=== PATIENT | female | born 1955 | race Caucasian/White ===

== ENCOUNTER → 2024-02-15 10:46 | Outpatient (REF) | payer OTHER, SELFPAY | LOC: HWWDC 10:46 | PROVIDERS: ATTENDING PHYSICIAN Internal Medicine | DX: Z12.31 Encounter for screening mammogram for malignant neoplasm of breast (principal) | CPT/HCPCS: 77063; 77067 ==

== ENCOUNTER → 2024-07-06 06:22 | Day surgery (SDC) | payer OTHER, SELFPAY ==
[2024-07-06 07:32] LABS: Glucose - Point of Care 220 mg/dl (70-99)
== END ==
LOC: GI 06:22
PROVIDERS: ATTENDING PHYSICIAN Internal Medicine Gastroenterology
DX: Z12.11 Encounter for screening for malignant neoplasm of colon (principal); D12.0 Benign neoplasm of cecum; D12.2 Benign neoplasm of ascending colon; K57.30 Diverticulosis of large intestine without perforation or abscess without bleeding; K64.8 Other hemorrhoids; Z86.0100 Personal history of colon polyps, unspecified
CPT/HCPCS: 45380; 88305; 82962

== ENCOUNTER → 2024-07-24 13:19 | Outpatient (REF) | payer OTHER, SELFPAY | LOC: MRI 13:19 | PROVIDERS: ATTENDING PHYSICIAN Internal Medicine | DX: S46.911S Strain of unspecified muscle, fascia and tendon at shoulder and upper arm level, right arm, sequela (principal); M25.511 Pain in right shoulder | CPT/HCPCS: 73221 ==

== ENCOUNTER → 2025-01-24 09:09 | Outpatient (REF) | payer OTHER, SELFPAY | LOC: HWRAD 09:09 | PROVIDERS: ATTENDING PHYSICIAN Internal Medicine Gastroenterology; PRIMARYCARE PHYSICIAN Internal Medicine | DX: K76.0 Fatty (change of) liver, not elsewhere classified (principal) | CPT/HCPCS: 76700 ==

== ENCOUNTER → 2025-02-19 08:51 | Outpatient (REF) | payer OTHER, SELFPAY | LOC: HWWDC 08:51 | PROVIDERS: ATTENDING PHYSICIAN Internal Medicine | DX: Z12.31 Encounter for screening mammogram for malignant neoplasm of breast (principal) | CPT/HCPCS: 77063; 77067 ==

== ENCOUNTER 2025-03-02 10:36 | Emergency (ER) | payer OTHER, SELFPAY ==
[2025-03-02 10:36] VITALS: BMI 40.9
[2025-03-02 11:01] VITALS: BP 170/126
--- NOTE | 2025-03-02 11:05 | ED.GENMED ---
Addendum entered and electronically signed by Chance De Los Santos PA-C 03/05/25 06:11:
Urine culture shows greater than 100,000 colony-forming units of Klebsiella. Sensitive to Augmentin which the patient is on. No indication for any intervention
Original Note:
History of Present Illness
General
Chief Complaint: Abdominal Pain
Time Seen by Provider: 03/02/25 11:00
History of Present Illness
History of Present Illness:
TIME OF INITIAL EVALUATION
- 11:10 AM
REVIEW OF OLD RECORDS
- The patient has a history of diverticulitis and IBS, CKD, ovarian cancer. Of note she was admitted here with hypomagnesemia in 2021.
Note:
CHIEF COMPLAINT(S)
Abdominal pain and nausea.
HISTORY OF PRESENT ILLNESS
The patient is a 69-year-old female with a history of diabetes mellitus, presenting with lower abdominal pain primarily localized to the left lower quadrant, beginning approximately three days ago. The patient reports the pain exacerbates with
palpation on the right side but confirms it is most prominent where direct pressure is applied. She also describes accompanying nausea but denies vomiting. She reports experiencing fevers up to approximately 100.0�F. The pain began about five days
after her last office visit for a different issue. The patient has a pacemaker, which she reports has migrated towards her armpit. She is aware of the associated risks, such as infection. The patient also has a history of chronic kidney disease and
is advised against using anti-inflammatory medications. She generally manages pain with acetaminophen but is uncertain about taking stronger medications.
ADDITIONAL HISTORY OBTAINED FROM SOURCES OTHER THAN THE PATIENT
According to the patient, no recent medical evaluation has been performed for her current presenting symptoms until now.
CHRONIC MEDICAL CONDITIONS SIGNIFICANTLY AFFECTING CARE
Chronic conditions affecting care: diabetes mellitus, pacemaker in situ, chronic kidney disease.
PAST MEDICAL HISTORY
Diabetes mellitus, chronic kidney disease.
PAST SURGICAL HISTORY
Pacemaker placement.
MEDICATIONS
Acetaminophen as needed.
REVIEW OF SYSTEMS
- Gastrointestinal: Nausea, abdominal pain primarily in the left lower quadrant.
- Constitutional: Fevers noted, approximately 100.0�F.
PHYSICAL EXAM
Nursing notes reviewed and vital signs reviewed.
- Cardiovascular: Pacemaker palpated, reported migration noted by the patient and felt during the physical exam near the left axilla.
- Abdominal: Tenderness primarily localized to the left lower quadrant. Mild tenderness to the right abdomen.
- General: Well appearing in no distress
- HEENT: Moist oral mucosa
- Cardiovascular: No murmurs, normal heart rate, regular rhythm, No chest wall tenderness
- Pulmonary: No respiratory distress, breath sounds are clear and equal
- Abdomen: Soft with no peritoneal signs, no tenderness
- Neurologic: Excellent strength all extremities, no coordination deficits
- Psychiatric: Appropriate mental status, normal insight and judgement
- Extremities: Nontender, no edema, moves all extremities equally
- Skin: No rash, no lesions
PLAN
Plan to perform a CT scan of the abdomen. Administer intravenous fluids and prescribe anti-nausea medication. Re-evaluate with blood work results and imaging findings.
DIFFERENTIAL DIAGNOSIS
The Differential Diagnosis includes, in no particular order and is not limited to:
- Diverticulitis
- Urinary tract infection
- Nephrolithiasis
- Gastroenteritis
- Appendicitis (unlikely given the location of pain)
- Constipation
- Abdominal aortic aneurysm
- Small bowel obstruction
- Mesenteric ischemia
- Biliary colic
RADIOLOGY
- CT imaging obtained and agree with radiologist interpretation that there is diverticulosis with no clear sign of diverticulitis
EKG
- Not indicated as pain is only primarily in the left lower quadrant
LABS
- Glucose 237, bicarb 20, white count is normal at 10.4, hemoglobin normal
UPDATE
- Patient appears fairly comfortable on reassessment at 1:50 PM
SUMMARY OF ENCOUNTER
The patient, a 69-year-old female with a history of diabetes mellitus and chronic kidney disease, presented with lower abdominal pain and accompanying nausea. Pain was localized to the left lower quadrant with tenderness upon palpation, potentially
indicating diverticulitis. Despite the normal white blood cell count, empirical antibiotic treatment was initiated due to localized tenderness.
DISPOSITION
Discharged with prescription for antibiotics.
ASSESSMENT
Lower abdominal pain potentially indicative of diverticulitis, managed with antibiotics due to clinical tenderness and history of similar symptoms.
EMERGENCY TREATMENTS ADMINISTERED
A dose of amoxicillin-clavulanate (Augmentin) was administered.
PLAN
Prescribe antibiotics and follow-up with dry cleaner presser. Monitor symptoms and effectiveness of treatment.
INDEPENDENT REVIEW OF LABS AND INTERPRETATION OF TESTS
My independent review of the CT scan is consistent with diverticulosis; however, there were no clear signs of diverticulitis according to the radiologist. Despite normal white blood cell count, antibiotics were deemed reasonable due to clinical
presentation.
MEDICATION RECONCILIATION
Amoxicillin-clavulanate prescribed and administered.
MEDICAL DECISION MAKING
1. Number & Complexity of Problems: Chronic conditions affecting care: diabetes mellitus, chronic kidney disease. Differential diagnoses considered include diverticulitis, urinary tract infection.
2. Risk: Consideration of admission/observation was made due to complexity/risk. However, outpatient management is appropriate based on reassuring work-up, stable vitals, symptom control, and follow-up reliability. Antibiotic was prescribed
considering potential for developing diverticulitis or urinary tract infection.
PATHOLOGIES TO CONSIDER
- Diverticulitis
- Urinary tract infection
- Nephrolithiasis
Past History
Past History
ED Past Medical History: Arrthythmia (Ventricular tachycardia, bradycardia with pauses (intermittent heart block)), HTN, Hypercholesterolemia, NIDDM and Other (Diverticulosis, irritable bowel syndrome, prolonged QT in the past)
ED Past Surgical History: Cardiac (Pacemaker) and Gynecological
Phy Exam
Physical Exam
Physical Exam:
See HPI
Course
Orders/Labs/Results
Orders:
Orders
03/02/25 11:05
0.9% Sodium Chloride 500 ml [Nss] 500 ml IV BOLUS
03/02/25 11:12
Complete Blood Count/With Diff Urgent
Comprehensive Metabolic Panel Urgent
Lipase Urgent
Magnesium Urgent
03/02/25 12:26
CT Abd/pelvis W Iv Cont Urgent
Comment:
Reason For Exam: LLQ pain h/o diverticulitis
03/02/25 13:47
Urinalysis Reflex To Culture Urgent
03/02/25 14:24
Amoxicillin 875 mg/Clav 125 mg [Augmentin 875 mg/125 mg] 1 tablet PO NOW STA
Abnormal Lab Results
03/02/25
11:12
Absolute Lymphs (auto) 4.7 H 10^3/uL
(1.2-3.4)
Absolute Monos (auto) 1.0 H 10^3/uL
(0.1-0.6)
Neutrophils % 40.8 L %
(42.2-75.2)
Monocytes % 9.4 H %
(1.7-9.3)
Chloride 109 H mmol/L
(98-107)
Carbon Dioxide 20 L mmol/L
(22-30)
Glucose 237 H mg/dl
(70-99)
AST 40 H U/L
(14-36)
ALT 36 H U/L
(0-35)
03/02/25 11:12
03/02/25 11:12
Vital Signs
Initial and Last Documented VS:
Initial Vital Signs
Temp Pulse Resp Pulse Ox
37.3 C 108 20 97
03/02/25 10:44 03/02/25 10:44 03/02/25 10:44 03/02/25 10:44
Last Documented Vital Signs
Temp Pulse Resp BP Pulse Ox
37.3 C 95 18 156/97 95
03/02/25 10:44 03/02/25 13:00 03/02/25 13:00 03/02/25 13:00 03/02/25 12:45
*Pulse Oximetry
SaO2: 97
Oxygen Mode of Delivery: Room air
Patient hypoxic: no
*Critical Care Note
Total Time (30-74mins, 75-104mins- exclusive of procedures): Not Applicable
ED Attending Note
-
Portions of this chart may have been created with voice recognition software.� Occasional wrong word or��sound alike� substitutions may have occurred due to the inherent limitations of voice recognition software.
Discharge Plan
Departure
Patient Disposition: Home (Routine Discharge)
Date of Disposition: 03/02/25
Time of Disposition: 14:22
Patient with high blood pressure during this ER visit?: Yes
Discharge Problem:
Abdominal pain
Instructions: Abdominal Pain
Prescriptions:
New
amoxicillin-pot clavulanate 875-125 mg tablet
1 tab PO BID Qty: 14 0RF
No Action
acetaminophen [Tylenol] 325 mg Tablet
650 mg PO TID
diphenhydramine HCl 50 mg Capsule
50 mg PO HS
ascorbic acid (vitamin C) [Vitamin C] 500 mg Tablet
500 mg PO BID
levothyroxine 50 mcg Tablet
50 mcg PO DAILY
Novolin R FlexPen 100 unit/mL (3 mL) Insulin Pen
25 unit SC DAILY
coenzyme Q10 [CoQ-10] 100 mg Capsule
100 mg PO DAILY
Novolin N FlexPen 100 unit/mL (3 mL) Insulin Pen
50 unit SC DAILY
cholecalciferol (vitamin D3) [Vitamin D3] 50 mcg (2,000 unit) Tablet
2,000 unit PO BID
omega [id number] oil [Fish Oil] 1,200 (144-216) mg Capsule
2 cap PO BID
cyanocobalamin (vitamin B-12) 100 mcg Tablet
100 mcg PO DAILY
calcium carbonate [Calcium 600] 600 mg calcium (1,500 mg) Tablet
1,200 mg PO BID
magnesium oxide 400 mg (241.3 mg magnesium) Tablet
400 mg PO BID
lisinopril 30 mg Tablet
30 mg PO DAILY
sertraline 25 mg Tablet
25 mg PO DAILY
Novolin N FlexPen 100 unit/mL (3 mL) Insulin Pen
25 unit SC QPM
rosuvastatin [Crestor] 20 mg Tablet
20 mg PO QPM
Novolin R FlexPen 100 unit/mL (3 mL) insulin pen
10 units SC HS
cefuroxime axetil 500 mg tablet
500 mg PO BID Qty: 14 0RF
Referrals:
Sulma Méndez MD [Active, Gastroenterology]
Hemant Russo DO [Family Provider, Internal Medicine]
Activity Restrictions/Additional Instructions:
The cause of your symptoms is unclear. The CAT scan did not show any clear signs of diverticulitis but we can still try an antibiotic called Augmentin. Follow-up with Dr. Méndez.
Interventions
Interventions:
*Risk Screen - Suicide Last Done: 03/02/25 10:44
*General Assessment Last Done: 03/02/25 11:18
*Neglect/Abuse Screening Last Done: 03/02/25 10:44
*ED- Fall Risk Assessment Last Done: 03/02/25 11:18
*ED COVID-19 Vaccine History Last Done: 03/02/25 11:18
TI-Foggaj-Wqvlgcrqya Assessment Last Done: 03/02/25 11:18
Discharge Date and Time
Print Language: MALTESE
[2025-03-02] MEDS: NSS 500 IV (11:15)
[2025-03-02 11:16] VITALS: BP 164/100
[2025-03-02 11:32] LABS: % Basophils 1.3 % (0-2); % Eosinophils 3.1 % (0-6); % Immature Granulocytes 0.2 % (0-0.5); % Lymphocytes 45.2 % (20.5-51.1); % Monocytes 9.4 % (1.7-9.3); % Neutrophils 40.8 % (42.2-75.2); Absolute Basophils 0.1 10^3/uL (0-0.2); Absolute Eosinophils 0.3 10^3/uL (0-0.7); Absolute Lymphocytes 4.7 10^3/uL (1.2-3.4); Absolute Neutrophils 4.3 10^3/uL (1.4-6.5); Hematocrit 42.4 % (37.0-47.0); Hemoglobin 14.8 g/dL (12.0-16.0); Mean Corp Hgb Conc. 34.9 g/dL (33.0-37.0); Mean Corpuscular Hgb 30.4 pg (27.0-31.0); Mean Corpuscular Volume 87.1 fL (81.0-99.0); Mean Platelet Volume 10.2 fL (7.4-10.4); Nucleated Red Blood Cells % 0 %; Platelet Count 187 10^3/uL (130-400); Red Blood Cell Count 4.87 10^6/uL (4.20-5.40); White Blood Cell Count 10.4 10^3/uL (4.8-10.8)
[2025-03-02 11:52] LABS: ALT (SGPT) 36 U/L (0-35); AST (SGOT) 40 U/L (14-36); Albumin 4.8 g/dl (3.5-5.0); Alkaline Phosphatase 77 U/L (38-126); Blood Urea Nitrogen 15 mg/dl (7-17); Calcium 9.9 mg/dl (8.4-10.2); Carbon Dioxide 20 mmol/L (22-30); Chloride 109 mmol/L (98-107); Estimated Creatinine Clearance 62 ml/min; Glucose 237 mg/dl (70-99); Lipase 215 U/L (23-300); Magnesium 1.6 mg/dl (1.6-2.3); Potassium 4.5 mmol/L (3.5-5.1); Sodium 141 mmol/L (135-145); Total Bilirubin 0.7 mg/dl (0.2-1.3); eGFR > 60.00
[2025-03-02 12:00] VITALS: BP 161/91
[2025-03-02 13:00] VITALS: BP 156/97
[2025-03-02] MEDS: AUGMENTIN 875 MG/125 MG 1 TABLET PO (14:41)
[2025-03-02 14:44] LABS: Urine Albumin 2+ (Neg - Trace); Urine Bilirubin Negative (Negative); Urine Character Clear (Clear); Urine Color Yellow; Urine Glucose Negative (Negative); Urine Ketone Negative (Negative); Urine Leukocyte Negative (Negative); Urine Nitrite Negative (Negative); Urine Occult Blood Negative (Negative); Urine Urobilinogen Negative (Neg - 1+)
[2025-03-02 14:50] LABS: Urine Red Blood Cell 0-2 /HPF (0-2)
[2025-03-02 14:51] LABS: Urine Bacteria Many (Negative)
== END 2025-03-02 15:04 | disposition home or self-care (01) ==
LOC: EMR 10:36
PROVIDERS: EMERGENCY PHYSICIAN Emergency Medicine; FAMILY PHYSICIAN Internal Medicine
DX: R10.9 Unspecified abdominal pain (principal); K58.9 Irritable bowel syndrome, unspecified; I12.9 Hypertensive chronic kidney disease with stage 1 through stage 4 chronic kidney disease, or unspecified chronic kidney disease; E11.22 Type 2 diabetes mellitus with diabetic chronic kidney disease; E78.00 Pure hypercholesterolemia, unspecified; E83.42 Hypomagnesemia; N18.9 Chronic kidney disease, unspecified; Z95.0 Presence of cardiac pacemaker
CPT/HCPCS: 99284; 96360; 74177; 80053; 81003; 81015; 83690; 83735; 85025; 87077; 87086; 87186; Q9967

== ENCOUNTER → 2025-07-19 12:39 | Outpatient (REF) | payer OTHER, SELFPAY | LOC: MRI 12:39 | PROVIDERS: ATTENDING PHYSICIAN Internal Medicine Gastroenterology; FAMILY PHYSICIAN Internal Medicine | DX: K76.0 Fatty (change of) liver, not elsewhere classified (principal) | CPT/HCPCS: 74181; 76014; 76015; 76391 ==